=== PATIENT | female | born 1940 | race Caucasian/White ===

== ENCOUNTER 2017-01-10 20:50 | Emergency (ER) | payer MEDICARE ==
[~2017-01-10] VITALS: Ht 157.5 cm; Wt 85.0 kg
[2017-01-10 20:55] VITALS: BP 203/95; PULSE 85; RESP 18; TEMP 98.1; O2SAT 95
[2017-01-10] MEDS ORDERED: VERA1TAB10 PO (21:00)
[2017-01-10] MEDS ORDERED: ASPI81CH CHEW (21:00)
--- NOTE | 2017-01-10 21:51 | PD ---
HPI Chief Complaint: Fall Time Seen by Provider: 21:00 Travel History International Travel<30 days: No Contact w/Intl Traveler<30days: No Traveled to known affect area: No History of Present Illness HPI Patient is a 76-year-old female presenting to the emergency department evaluation of right shoulder, right knee pain after sustaining a mechanical fall just prior to arrival. Patient was at her hotel when she tripped on an incline, she rolled and landed on her right shoulder. She was able to stand herself up and get into a wheelchair, she was then brought to the [facility] lobby to be evaluated and was advised to come to the emergency department for evaluation. Fall was witnessed, patient denies any head injury or loss of consciousness. She states the pain in her shoulder and knee is a 5 out of 10 and describes an aching and sore. PFSH Past Medical History Hx Anticoagulant Therapy: Yes (aspirin) Hypertension: Yes Tetanus Vaccination: > 5 Years Influenza Vaccination: No ?: Not Past Surgical History Other Surgery: Yes (bilateral knee replacements) Social History Alcohol Use: No Tobacco Use: No Substance Use: No Allergies-Medications (Allergen,Severity, Reaction): Coded Allergies: No Known Allergies (Unverified , 01/10/17) Reported Meds & Prescriptions Reported Meds & Active Scripts Active Reported Verapamil ER (Verapamil HCl) 180 Mg Tab 180 Mg PO DAILY Aspirin 81 Mg Chew 81 Mg CHEW DAILY Review of Systems Except as stated in HPI: all other systems reviewed are Neg Musculoskeletal: Positive: Myalgias, Edema, Pain Physical Exam Narrative GENERAL: Obese, well-developed, alert elderly female. Resting comfortably in no acute distress. SKIN: Warm and dry. Superficial abrasion to posterior right elbow. HEAD: Atraumatic. Normocephalic. EYES: Pupils equal and round. No scleral icterus. No injection or drainage. ENT: No nasal bleeding or discharge. Mucous membranes pink and moist. NECK: Trachea midline. No JVD. CARDIOVASCULAR: Regular rate and rhythm. RESPIRATORY: No accessory muscle use. Clear to auscultation. Breath sounds equal bilaterally. GASTROINTESTINAL: Abdomen soft, non-tender, nondistended. Hepatic and splenic margins not palpable. MUSCULOSKELETAL: Extremities without clubbing, cyanosis. No obvious deformities. Edema to anterior right knee. Full range of motion with flexion and extension. Patient is neurovascularly intact. NEUROLOGICAL: Awake and alert. No obvious cranial nerve deficits. Motor grossly within normal limits. Five out of 5 muscle strength in the arms and legs. Normal speech. PSYCHIATRIC: Appropriate mood and affect; insight and judgment normal. Data Data Last Documented VS Vital Signs Date Time Temp Pulse Resp B/P Pulse Ox O2 Delivery O2 Flow Rate FiO2 01/10/17 21:06 Room Air 01/10/17 20:55 98.1 85 18 203/95 95 Orders Shoulder, Complete (>2vws) (01/10/17 ) Knee, Complete (4vws) (01/10/17 ) [facility] Medical Decision Making Medical Screen Exam Complete: Yes Emergency Medical Condition: Yes Interpretation(s) Last Impressions Shoulder X-Ray 01/10/17 0000 Signed Impressions: Service Date/Time: Tuesday, January 10, 2017 21:25 - CONCLUSION: 1. 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 joint and shoulder joint. Francisco Monet MD Knee X-Ray 01/10/17 0000 Signed Impressions: Service Date/Time: Tuesday, January 10, 2017 21:28 - CONCLUSION: 1. Postop right total knee replacement. No acute bony abnormality. Francisco Monet MD Vital Signs Date Time Temp Pulse Resp B/P Pulse Ox O2 Delivery O2 Flow Rate FiO2 01/10/17 21:06 Room Air 01/10/17 20:55 98.1 85 18 203/95 95 Differential Diagnosis Fracture versus sprain versus strain versus effusion versus dislocation versus other Narrative Course Patient is a 76-year-old female presenting after a witnessed fall for evaluation of right shoulder and right knee pain. Patient appears well, though not obvious deformities noted. Patient was hypertensive on arrival, she has a history of hypertension and is due for her evening dose of verapamil. X-rays ordered and pending. Pt refused CXR Shoulder and knee X-ray read by radiologist are negative for acute fracture. Osteoarthritis noted in right shoulder. Pt encouraged to continue ROM exercises, apply warm heat to affected area, avoid exacerbating activities. She was encouraged to return to the ED for any new or worsening symptoms. Pt and spouse verbalized understanding of instructions and findings. Pt is stable for discharge. Blood pressure reassessed prior to discharge at 179/86. Pt advised to take evening dose of Verapamil upon discharge. Diagnosis Primary Impression: Shoulder pain Qualified Code: M25.519 - Shoulder pain, unspecified chronicity, unspecified laterality Additional Impression: Knee pain Qualified Code: M25.561 - Right knee pain, unspecified chronicity Referrals: Primary Care Physician Patient Instructions: General Instructions, Knee Pain (ED), Shoulder Pain (ED) Additional Instructions: Follow-up with her primary doctor Take medications as directed Apply warm moist heat to affected area, continue range of motion exercises, avoid exacerbating activities, avoid bed rest Return to emergency department for any new or worsening symptoms Med/Other Pt SpecificInfo: Prescription(s) given Scripts Cyclobenzaprine (Flexeril)5 Mg Tab5 Mg PO TID PRN (MUSCLE SPASM) 7 Days Ref 0 Prov:Angie Vega 01/10/17 Meloxicam (Mobic)15 Mg Tab15 Mg PO DAILY 10 Days Ref 0 Prov:Angie Vega 01/10/17 Disposition: 01 DISCHARGE HOME Condition: Stable Angie Vega Jan 10, 2017 21:51
--- NOTE | 2017-01-10 22:00 | RADRPT ---
EXAM DATE/TIME: 01/10/2017 21:25 [facility] COMPARISON: No previous studies available for comparison. INDICATIONS : Right shoulder pain post fall. MEDICAL HISTORY : Arthritis. SURGICAL HISTORY : Total knee replacement, left. Total knee replacement, right. ENCOUNTER: Initial ACUITY: 1 day PAIN SCORE: 9/10 LOCATION: Right upper extremity FINDINGS: Multiple view examination of the right shoulder demonstrates no evidence of fracture or dislocation. Moderate osteoarthritis present. There is normal range of motion between internal and external rotati on. Bony mineralization is normal. CONCLUSION: 1. 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 joint and shoulder joint. Francisco Monet MD on January 10, 2017 at 21:58 Board Certified Radiologist. This report was verified electronically.
--- NOTE | 2017-01-10 22:02 | RADRPT ---
EXAM DATE/TIME: 01/10/2017 21:28 [facility] COMPARISON: No previous studies available for comparison. INDICATIONS : Right lateral knee pain with swelling post fall. MEDICAL HISTORY : Arthritis. SURGICAL HISTORY : Total knee replacement, left. Total knee replacement, right. ENCOUNTER: Initial ACUITY: 1 day PAIN SCORE: 9/10 LOCATION: Right lateral knee FINDINGS: Postoperative change of right total knee replacement present. No significant joint effusion. No acute fracture. Bones osteopenic. CONCLUSION: 1. Postop right total knee replacement. No acute bony abnormality. Francisco Monet MD on January 10, 2017 at 21:59 Board Certified Radiologist. This report was verified electronically.
[2017-01-10] MEDS ORDERED: CYCL5TAB PO (22:15)
[2017-01-10] MEDS ORDERED: MOBI15TA PO (22:15)
== END 2017-01-10 23:10 | disposition home or self-care (01) ==
LOC: NEPC 20:50
DX: M25.561 Pain in right knee (principal); M19.011 Primary osteoarthritis, right shoulder; I10 Essential (primary) hypertension; W18.30XA Fall on same level, unspecified, initial encounter; Y92.59 Other trade areas as the place of occurrence of the external cause; Z79.82 Long term (current) use of aspirin; Z79.899 Other long term (current) drug therapy
CPT/HCPCS: 73030; 73564; 99284